=== PATIENT | male | born 1965 | race Caucasian/White ===

== ENCOUNTER → 2022-10-17 | Emergency (ER) | payer MEDICARE, MEDICAID ==
[2022-10-17] VITALS (13 sets, daily range): BP systolic 100–138; BP diastolic 50–93
[~2022-10-17] MED LIST: PREDNISONE50 MG PO; VIBRAMYCIN100 M2 PO
[2022-10-17 03:01] LABS: BASO% 0.5 % (0-3); EOS% 0.4 % (0-8); HEMATOCRIT 38.9 % (39.0-50.0); HEMOGLOBIN 12.3 g/dl (14.0-18.0); IMMATURE GRANULOCYTES 0.2 % (0.0-5.0); MEAN CELL VOLUME 91.7 fL CALC (80.0-100.0); MEAN CORPUSCULAR HGB CONC 31.6 g/dL CAL (32.0-36.0); MONO% 5.8 % (2-13); NEUT# 8.2 thou/uL (1.82-7.42); NEUT% 83.1 % (42-76); RED BLOOD COUNT 4.24 mill/uL (4.70-6.10); RED CELL DISTRI WIDTH 13.6 % (11.5-15.5)
[2022-10-17 03:05] LABS: ALBUMIN 4.2 g/dL (3.2-5.0); ALKALINE PHOSPHATASE 91 u/l (38-126); ANION GAP 10 (6-22 (CALC)); BUN 20 mg/dL (9-20); BUN/CREATININE RATIO 22 (12-20 (CALC)); CARBON DIOXIDE 35 mmol/l (22-30); CHLORIDE 101 mmol/l (95-108); CREATININE 0.9 mg/dL (0.7-1.3); GFR FOR AFR.AMER. > 60 ML/MIN (>=60 (CALC)); GFR OTHER RACES > 60 ML/MIN (>=60 (CALC)); POTASSIUM 4.8 mmol/l (3.5-5.1); SGOT/AST 24 u/l (17-59); SODIUM 141 mmol/l (137-146); TOTAL PROTEIN 6.9 g/dL (6.3-8.2)
[2022-10-17 03:08] LABS: ACT PARTIAL THROMBO TIME 26.1 SECONDS (20.0-32.5); INTERNATIONAL NORMALIZED RATIO 1.1 RATIO (0.7-1.3); PROTHROMBIN TIME 10.8 SECONDS (9.0-12.5)
[2022-10-17 03:26] LABS: D-DIMER 0.26 mg/L (0.19-0.60)
[2022-10-17 05:26] LABS: URINE BILIRUBIN - DIPSTICK NEGATIVE (NEGATIVE); URINE BLOOD DIPSTICK NEGATIVE (NEGATIVE); URINE COLOR YELLOW; URINE GLUCOSE - DIPSTICK 500 mg/dL (NEGATIVE); URINE KETONE NEGATIVE (NEGATIVE); URINE LEUK ESTERASE NEGATIVE (NEGATIVE); URINE PROTEIN - DIPSTICK NEGATIVE (NEG-TRACE); URINE SPECIFIC GRAVITY >=1.030; URINE UROBILINOGEN - DIPSTICK 0.2 E.U./dL (0.2)
[2022-10-17 05:28] LABS: URINE NITRITE - DIPSTICK NEGATIVE (Negative)
== END | disposition home or self-care (01) ==
LOC: ED 02:09
PROVIDERS: Family Medicine
DX: J44.1 Chronic obstructive pulmonary disease with (acute) exacerbation (principal); C34.91 Malignant neoplasm of unspecified part of right bronchus or lung; I10 Essential (primary) hypertension; E11.9 Type 2 diabetes mellitus without complications; E66.9 Obesity, unspecified; Z20.822 Contact with and (suspected) exposure to COVID-19

== ENCOUNTER 2023-05-08 02:29 | Observation (INO) | payer MEDICARE, MEDICAID ==
[~2023-05-08] VITALS: Ht 167.6 cm; Wt 120.6 kg
[2023-05-08] VITALS (16 sets, daily range): BP systolic 107–142; BP diastolic 53–83
[2023-05-08 03:18] LABS: BASO% 0.8 % (0-3); HEMATOCRIT 31.5 % (39.0-50.0); HEMOGLOBIN 9.1 g/dl (14.0-18.0); LYMPH% 16.7 % (15-41); MEAN CELL VOLUME 92.1 fL CALC (80.0-100.0); MEAN CORPUSCULAR HGB 26.6 pG CALC (26.0-32.0); MEAN CORPUSCULAR HGB CONC 28.9 g/dL CAL (32.0-36.0); MONO% 10.7 % (2-13); NEUT# 4.29 thou/uL (1.82-7.42); NEUT% 68.8 % (42-76); RED BLOOD COUNT 3.42 mill/uL (4.70-6.10); RED CELL DISTRI WIDTH 14.6 % (11.5-15.5)
[2023-05-08 03:36] LABS: ALBUMIN 3.5 g/dL (3.2-5.0); ALKALINE PHOSPHATASE 76 u/l (38-126); ANION GAP 7 (6-22 (CALC)); BUN 6 mg/dL (9-20); BUN/CREATININE RATIO 11 (12-20 (CALC)); CARBON DIOXIDE 39 mmol/l (22-30); CHLORIDE 99 mmol/l (95-108); CREATININE 0.5 mg/dL (0.7-1.3); GFR FOR AFR.AMER. > 60 ML/MIN (>=60 (CALC)); GFR OTHER RACES > 60 ML/MIN (>=60 (CALC)); SGOT/AST 25 u/l (17-59); SODIUM 141 mmol/l (137-146); TOTAL PROTEIN 6.4 g/dL (6.3-8.2)
[2023-05-08 03:38] LABS: BILIRUBIN, TOTAL 0.4 mg/dL (0.2-1.3)
[2023-05-08] MEDS ORDERED: LASIX 40 MG TAB40 MG PO (06:53)
[2023-05-08] MEDS ORDERED: HYDROCODONE BIT1 TA7 (06:54)
[2023-05-08] MEDS ORDERED: POTASSIUM CHLO10 MEQ PO (06:54)
[2023-05-08] MEDS ORDERED: PREGABALIN100 MG (06:55)
[2023-05-08] MEDS ORDERED: JANUVIA100 MG PO (06:55)
[2023-05-08] MEDS ORDERED: OZEMPIC2 MG (06:56)
[2023-05-08] MEDS ORDERED: MEDDOSEPAK (06:57)
[2023-05-08] MEDS ORDERED: ALPRAZOLAM0.25 MG PO (06:57)
[2023-05-08] MEDS ORDERED: ELIQUIS5 MG PO (06:57)
[2023-05-08] MEDS ORDERED: LISINOPRIL5 MG PO (06:59)
[2023-05-08] MEDS ORDERED: DILTIAZEM HCL120 M1 PO (06:59)
[2023-05-08] MEDS ORDERED: PRAVASTATIN40 MG PO (07:00)
[2023-05-08] MEDS ORDERED: SERTRALINE50 MG PO (07:00)
[2023-05-08] MEDS ORDERED: ALBUTEROL108 MCG/AC (07:01)
[2023-05-08] MEDS ORDERED: TAMSULOSIN HCL0.4 MG PO (07:02)
[2023-05-08] MEDS ORDERED: TRELEGY ELLIPTA1 AER (07:02)
[2023-05-08 07:50] LABS: URINE BILIRUBIN - DIPSTICK Negative (NEGATIVE); URINE BLOOD DIPSTICK Negative (NEGATIVE); URINE GLUCOSE - DIPSTICK 250 mg/dL (NEGATIVE); URINE KETONE Negative (NEGATIVE); URINE LEUK ESTERASE Negative (NEGATIVE); URINE NITRITE - DIPSTICK Negative (Negative); URINE PH 5.5 (4.5-8.0); URINE PROTEIN - DIPSTICK Negative (NEG-TRACE); URINE SPECIFIC GRAVITY <=1.005; URINE UROBILINOGEN - DIPSTICK 0.2 E.U./dL (0.2)
[2023-05-08 07:51] LABS: URINE COLOR Yellow
[2023-05-09] VITALS (10 sets, daily range): BP systolic 112–146; BP diastolic 53–80
[2023-05-09 09:00] LABS: BASO% 0.3 % (0-3); HEMATOCRIT 30.2 % (39.0-50.0); HEMOGLOBIN 9.1 g/dl (14.0-18.0); IMMATURE GRANULOCYTES 0.5 % (0.0-5.0); LYMPH% 3.2 % (15-41); MEAN CELL VOLUME 88.8 fL CALC (80.0-100.0); MEAN CORPUSCULAR HGB 26.8 pG CALC (26.0-32.0); MEAN CORPUSCULAR HGB CONC 30.1 g/dL CAL (32.0-36.0); MONO% 4.4 % (2-13); NEUT# 5.78 thou/uL (1.82-7.42); NEUT% 91.6 % (42-76); RED BLOOD COUNT 3.4 mill/uL (4.70-6.10); RED CELL DISTRI WIDTH 14.5 % (11.5-15.5)
[2023-05-09 09:13] LABS: ALBUMIN 3.6 g/dL (3.2-5.0); ALKALINE PHOSPHATASE 80 u/l (38-126); ANION GAP 9 (6-22 (CALC)); BILIRUBIN, TOTAL 0.4 mg/dL (0.2-1.3); BUN 14 mg/dL (9-20); BUN/CREATININE RATIO 23 (12-20 (CALC)); CARBON DIOXIDE 37 mmol/l (22-30); CHLORIDE 95 mmol/l (95-108); CREATININE 0.6 mg/dL (0.7-1.3); GFR FOR AFR.AMER. > 60 ML/MIN (>=60 (CALC)); GFR OTHER RACES > 60 ML/MIN (>=60 (CALC)); POTASSIUM 3.7 mmol/l (3.5-5.1); SGOT/AST 29 u/l (17-59); SODIUM 137 mmol/l (137-146); TOTAL PROTEIN 6.5 g/dL (6.3-8.2)
[2023-05-10] VITALS (10 sets, daily range): BP systolic 122–135; BP diastolic 56–80
[2023-05-10 05:31] LABS: BASO% 0.1 % (0-3); HEMATOCRIT 30.9 % (39.0-50.0); HEMOGLOBIN 9.3 g/dl (14.0-18.0); IMMATURE GRANULOCYTES 0.2 % (0.0-5.0); LYMPH% 3.1 % (15-41); MEAN CELL VOLUME 87.8 fL CALC (80.0-100.0); MEAN CORPUSCULAR HGB 26.4 pG CALC (26.0-32.0); MEAN CORPUSCULAR HGB CONC 30.1 g/dL CAL (32.0-36.0); MONO% 1.8 % (2-13); NEUT# 8.46 thou/uL (1.82-7.42); NEUT% 94.8 % (42-76); RED BLOOD COUNT 3.52 mill/uL (4.70-6.10); RED CELL DISTRI WIDTH 14.8 % (11.5-15.5)
[2023-05-10 05:33] LABS: ALBUMIN 3.7 g/dL (3.2-5.0); ALKALINE PHOSPHATASE 75 u/l (38-126); ANION GAP 11 (6-22 (CALC)); BILIRUBIN, TOTAL 0.4 mg/dL (0.2-1.3); BUN 24 mg/dL (9-20); BUN/CREATININE RATIO 38 (12-20 (CALC)); CARBON DIOXIDE 38 mmol/l (22-30); CHLORIDE 94 mmol/l (95-108); CREATININE 0.6 mg/dL (0.7-1.3); GFR FOR AFR.AMER. > 60 ML/MIN (>=60 (CALC)); GFR OTHER RACES > 60 ML/MIN (>=60 (CALC)); MAGNESIUM 2.2 mg/dL (1.6-2.3); POTASSIUM 4.2 mmol/l (3.5-5.1); SGOT/AST 21 u/l (17-59); SODIUM 138 mmol/l (137-146); TOTAL PROTEIN 6.3 g/dL (6.3-8.2)
[2023-05-11 00:12] VITALS: BP 144/80
[2023-05-11 00:26] VITALS: BP 144/80
[2023-05-11 04:16] VITALS: BP 105/56
[2023-05-11 05:02] VITALS: BP 105/56
[2023-05-11 06:15] LABS: BASO% 0.1 % (0-3); HEMATOCRIT 29.9 % (39.0-50.0); HEMOGLOBIN 9.1 g/dl (14.0-18.0); IMMATURE GRANULOCYTES 0.4 % (0.0-5.0); LYMPH% 4.1 % (15-41); MEAN CELL VOLUME 88.7 fL CALC (80.0-100.0); MEAN CORPUSCULAR HGB CONC 30.4 g/dL CAL (32.0-36.0); MONO% 5.8 % (2-13); NEUT# 8.12 thou/uL (1.82-7.42); NEUT% 89.6 % (42-76); RED BLOOD COUNT 3.37 mill/uL (4.70-6.10); RED CELL DISTRI WIDTH 14.7 % (11.5-15.5)
[2023-05-11 06:20] LABS: ALBUMIN 3.5 g/dL (3.2-5.0); ALKALINE PHOSPHATASE 71 u/l (38-126); ANION GAP 9 (6-22 (CALC)); BILIRUBIN, TOTAL 0.3 mg/dL (0.2-1.3); BUN 21 mg/dL (9-20); BUN/CREATININE RATIO 32 (12-20 (CALC)); CARBON DIOXIDE 38 mmol/l (22-30); CHLORIDE 94 mmol/l (95-108); CREATININE 0.7 mg/dL (0.7-1.3); GFR FOR AFR.AMER. > 60 ML/MIN (>=60 (CALC)); GFR OTHER RACES > 60 ML/MIN (>=60 (CALC)); MAGNESIUM 2.3 mg/dL (1.6-2.3); POTASSIUM 4.2 mmol/l (3.5-5.1); SGOT/AST 22 u/l (17-59); SODIUM 136 mmol/l (137-146); TOTAL PROTEIN 5.9 g/dL (6.3-8.2)
[2023-05-11 06:32] VITALS: BP 110/56
[2023-05-11] MEDS ORDERED: PREDNISONE10 MG PO (13:00)
[2023-05-11] MEDS ORDERED: DOXYCYCLINE HY100 MG PO (13:00)
[2023-05-11 14:36] VITALS: BP 126/56
[2023-05-11] MEDS ORDERED: LORTAB 1010 MG PO (15:47)
[2023-05-11] MEDS ORDERED: XANAX0.25 MG PO (15:48)
== END 2023-05-11 15:51 ==
LOC: ED 02:29 → ED-I 04:10 → ED 04:39 → MS2 04:40
PROVIDERS: Emergency Medicine; Nurse Practitioner Family; ADMIT Student in an Organized Health Care Education/Training Program; ATTEND Student in an Organized Health Care Education/Training Program
DX: J44.1 Chronic obstructive pulmonary disease with (acute) exacerbation (principal); J40 Bronchitis, not specified as acute or chronic; I11.0 Hypertensive heart disease with heart failure; I50.32 Chronic diastolic (congestive) heart failure; E11.9 Type 2 diabetes mellitus without complications; E66.9 Obesity, unspecified; G47.33 Obstructive sleep apnea (adult) (pediatric); B95.7 Other staphylococcus as the cause of diseases classified elsewhere; Z85.118 Personal history of other malignant neoplasm of bronchus and lung; Z90.2 Acquired absence of lung [part of]; Z99.81 Dependence on supplemental oxygen; Z79.85 Long-term (current) use of injectable non-insulin antidiabetic drugs; Z79.84 Long term (current) use of oral hypoglycemic drugs; Z87.891 Personal history of nicotine dependence; Z20.822 Contact with and (suspected) exposure to COVID-19
CPT/HCPCS: J1650